=== PATIENT | female | born 1935 | race Caucasian/White ===

== ENCOUNTER 2018-10-09 14:18 | Emergency (ER) | payer OTHER ==
[~2018-10-09] VITALS: Ht 152.4 cm; Wt 84.2 kg
--- NOTE | ~2018-10-09 | EKG ---
[place] [address] [facility] [address] [place] [address] ELECTROCARDIOGRAM REPORT Name: STEPHANY MOORE Room #: 170-10 ADM IN M.R.#: [id number] Admission: 10/09/18 Attend Phys: Bubba Blankenship MD, Discharge: Date of : 37 Report #: [id number] THIS REPORT FOR: //name// [facility] ED Test Date: 2018-10-09 Test Time: 14:35:00 Pat Name: STEPHANY MOORE Department: Room: 170 Gender: F Director Report: UBALDO : 1935 Requested By: Jimmy Zamora Order Number: [id number] MD: Jorge De Paz Measurements Intervals [place] Rate: 124 P: 131 RI: 73 QRS: -36 QRSD: 136 T: 158 QT: 341 QTc: 490 Interpretive Statements Sinus tachycardia Left bundle branch block Compared to ECG 12/20/2012 11:58:14 Left bundle-branch block now present Electronically Signed On 10-09-2018 16:40:52 FIXING CARPENTER by Jorge De Paz [email or web address] <ELECTRONICALLY SIGNED> By: Jorge De Paz MD, [facility] 10/09/18 [facility] 143 1435 Jroge De Paz MD, [facility] /EPI
--- NOTE | ~2018-10-09 | CATHLAB ---
[facility] [address] [place] [address] INVASIVE PROCEDURE REPORT Name: TERESASTEPHANY Room #: MARILYN Ruiz#: [id number] Admission: 10/09/18 Attend Phys: Discharge: 10/09/18 Date of : 37 Date of Service: 10/15/18 0954 Report #: [id number] THIS REPORT FOR: //name// APPROVED REPORT Study performed: 10/09/2018 15:48:31 Patient Details Patient Status: In-Patient Room #: The patient is a 82 year-old female Event Personnel Bubba Blankenship Retail Warehouse Supervisor, Sera Olvera RN RN, Edilberto Orozco RN RN, Rosa Gutierrez, Leydi Romero Monitor Procedures Performed Art Access - R femoral artery* Ruy Access - R femoral vein Ruy Access - L femoral vein 37437 Initial Mod Sed Same Phys/QHP Gr5y 465646 07084 Mod Sed Same Phys/QHP Ea 384344 Coronaries Angiography w/Rt Heart Cath 8770197 RHCWCOR Supravalvular Aortography Injection 0978637 ISVA Aortogram Abdominal Peripheral Angio 949187 EH Place w/wo Plasty Single Left Main 401332 PTCA Single Vessel RCA 9595108 PCISINGLE Cardio-Pulmonary Resuscitation 2495253 CPR Indication STEMI Procedure Narrative The patient was brought emergently to the Cardiac Catheterization Laboratory and was prepped and draped in a sterile manner. The Right Groin^ was infiltrated with 1% Lidocaine subcutaneous anesthesia. A Right Heart Catheterization was performed with a 7 Fr. Enola-Guillermina catheter and pressure were recorded. A PINNACLE 6FR Sheath #[id number] sheath was inserted into the RFA^. Coronary angiography was performed using coronary diagnostic catheters. The right coronary system was accessed and visualized with a JR 4 catheter. The left coronary system was accessed and visualized with a JL 4 catheter. Intraoperative Conscious Sedation Sedation start time: 16:34 Case end Time: 19:01 Fentanyl 25 mcg Versed 0.[address] [address] INVASIVE PROCEDURE REPORT Name: [facility] Room #: [facility] Joseph#: [id number] Admission: 10/09/18 Attend Phys: Discharge: 10/09/18 Date of : 37 Date of Service: 10/15/18 0954 Report #: [id number] Fluoro Time: 33.20 minutes Dose: DAP 79129.00 cGycm2 4418 mGy Contrast Type and Amount: Omnipaque 250 ml IVUS Intravascular Ultrasound was performed on the mid right coronary artery vessel. A Guide Catheter was used to engage the Luge Wire .014 x 182CM #[id number] ostium. A LAUNCHER 6FR JR 4 #[id number] was used. IVUS Findings Sprinter OTW 1.5 x 12 #997120 Hemodynamics The pulmonary artery pressure is 37/9 mmHg with a mean of 23 mmHg. The mean pulmonary capillary wedge pressure is 12 mmHg. The aortic pressure is 113/85 mmHg with a mean of 97 mmHg. PCI Technique Lesion Percutaneous coronary intervention was performed on the mid right coronary artery. A Luge Wire .014 x 182CM #916475 Guide Catheter was used to engage the ostium. A LAUNCHER 6FR JR 4 #[id number] Interventional Guidewire was used to cross the lesion. BALLOON DILATION A Balloon catheter Sprinter OTW 2.25 x 20 #[id number] was inserted and inflated up to 3.00atm for 19seconds. POST STENT DEPLOYMENT BALLOON DILATION A Balloon catheter Sprinter OTW 2.0 x 12 #[id number] was inserted and inflated up to 12.00atm for 32seconds. Additional Inflation: 6.00atm for 28seconds. PCI Technique Lesion Percutaneous coronary intervention was performed on the mid right coronary artery. A Luge Wire .014 x 182CM #712755 Guide Catheter was used to engage the ostium. A LAUNCHER 6FR JR 4 #[id number] Interventional Guidewire was used to cross the lesion. BALLOON DILATION A Balloon catheter Sprinter OTW 1.5 x 12 #[id number] was inserted and inflated up to 16.00atm for 22seconds. Additional Inflation: 16.00atm for 30seconds. POST STENT DEPLOYMENT BALLOON DILATION A Balloon catheter Sprinter OTW 2.25 x 15 #[id number] was inserted and [facility] [address] [place] [address] INVASIVE PROCEDURE REPORT Name: [facility] Room #: MARILYN Ruiz#: [id number] Admission: 10/09/18 Attend Phys: Discharge: 10/09/18 Date of : 37 Date of Service: 10/15/18 0954 Report #: [id number] inflated up to 10.00atm for 21seconds. Additional Inflation: 14.00atm for 20seconds. Additional Inflation: 18.00atm for 20seconds. PCI Technique Lesion 2 Percutaneous Coronary Intervention was performed on the LM. A Luge Wire .014 x 182CM #486251 Guide Catheter was used to engage the ostium. A LAUNCHER 6FR JL4.5 #023903 Interventional Guidewire was used to cross the lesion. Balloon Dilation A Balloon catheter Sprinter OTW 2.5 x 10 #[id number] was inserted and inflated up to 14.00atm for 15seconds. Stent Deployment A drug-eluting stent RESOLUTE PADMINI OTW 2.5 X 8 #[id number] was inserted and inflated up to 14.00atm for 17seconds. Additional Inflation: 18.00atm for 15seconds. Post Stent Deployment Balloon Dilation A Balloon catheter TREK NC OTW 3.0 X 12 #[id number] was inserted and inflated up to 18.00atm for 10seconds. Conclusion #1 successful PTCA stent of a subtotal ostial left main placement of a 2.5 x 8 Padmini postdilated 2.8 mm. Religion of flow into the left system was noted. #2 successful PTCA of the distal third of the dominant right coronary artery that was subtotaled. Technically difficult challenging less than 30% residual with muslim of some flow into the PDA. This was attempted initially to try to give some back up to the left main intervention. As a left system was collaterally filling the PDA. This went relatively successful in that hemodynamics had been mildly compromised with systolic pressures 80-90 from the initiation of this case on initiation of pressor support. However this did not worsen her significantly changed for this intervention prior to the left main intervention. #3 moderately severe disease involving the LAD which extended to the apex and filled the PDA and the diagonal circumflex system in addition. On no high-grade lesions noted #4 aortic root was performed mild lead dilated. I cannot cross that aortic valve nor did the situation allow time due to hypotension and tachycardia. There may have been a degree of aortic stenosis. This case was done emergently from the ER Narrative: Extremely difficult challenging case. Patient hypotensive tachycardic at initiation. Pressor support was initiated as well as [facility] [address] [place] [address] INVASIVE PROCEDURE REPORT Name: [facility] Room #: [facility] Ruiz#: [id number] Admission: 10/09/18 Attend Phys: Discharge: 10/09/18 Date of : 37 Date of Service: 10/15/18 0954 Report #: [id number] respiratory support. Attempted to intervene and did intervene into the right coronary artery initially without any change in hemodynamics to try to provide some flow to the PDA as the entire system was being filled off of a subtotal ostial left main. Moderate disease noted in the left system as above. Continue pressor support and emergent intubation from emergency room physician. CPR ensued on multiple occurrences with ACLS protocol multiple rounds of epinephrine and atropine and bicarbonate 5 A calcium. Pulmonary was also in assistance. I did have return of rhythm and pressure. However could not hold her pressure and had multiple occurrences of PE A. This entire CODE BLUE last approximately 45 minutes. That was after initiation of the code after the intervention. The left main intervention went well but extremely difficult due to guide support. Final result was a widely patent left main with flow however could not continue suppressor support. Certainly may be a component of aortic valve stenosis that was complicating this however there is no way to know there is was no imaging performed the right coronary was patent and improved proved flow after the dilatation of the distal third segment of that right coronary with some filling of the PDA. Extreme tortuosity of the iliac system were precluded any sort of balloon pump support. Nor was there really any time to initiate due to the relative tachycardia and hypotension. Emergent surgery obviously not an option here. There was no family she is estranged from her children who [place] [facility] she stated prior and lives with a friend who I did discuss. And then I believe corners were notified up agreed to sign the certificate. I didn't appreciate the support of the staff for CPR purposes pulmonary and emergency room physicians. I did terminate the CODE BLUE. <ELECTRONICALLY SIGNED> By: Bubba Blankenship MD, [facility] 10/15/1854 3 3 Bubba Blankenship MD, FAC /INF
--- NOTE | ~2018-10-09 | D ---
[facility] [place] [address] [place] [address] DISCHARGE SUMMARY Name: STEPHANY MOORE Room #: 170-10 ADM IN M.R.#: [id number] Admission: 10/09/18 Attend Phys: Bubba Blankenship MD, Discharge: Date of : 37 Report #: [id number] THIS REPORT FOR: //name// CC: Bubba Hernandez DATE OF SERVICE: 10/09/2018 HISTORY OF PRESENT ILLNESS: The patient is an 82-year-old female I am asked to see emergently for progressive shortness of breath, chest pain and a troponin of 13. Significant abnormalities in her EKG with an incomplete left bundle and sinus tachycardia. Some marginal oxygenation. She has not seen physicians much in the past. She used to see Dr. Germain Hernandez. Recently saw somebody since a.m., but does not remember the name. She has been on esmolol, warfarin, lisinopril 5, amiodarone, magnesium, carvedilol, atorvastatin 40 and levothyroxine 0.1. Did not have any results of an INR back. Past medical history does not involve any cardiac history that she is aware. She has hypertension, hypercholesterolemia and she started treating those a few years ago. Laboratory work, pO2 was 70, pH was 7.4. H and H was 11 and 34. INR was 1.1 and she states she had not been taking her warfarin. Creatinine was 0.9. Troponin was 13.1. BNP was 10,000. PAST MEDICAL HISTORY: Obtained from the records in the Emergency Room was hypertension, hypercholesterolemia, obesity, reflux, depression, DJD, appendectomy and cholecystectomy. It appears she must have had some history of atrial fibrillation with the amiodarone and warfarin by history. SOCIAL HISTORY: She states she is not currently a drinker or smoker, but previously has been both. She is and/or . She is estranged from her [place] She lives with a friend. No current alcohol or tobacco. FAMILY HISTORY: She denies, but really states she cannot remember if there is any premature coronary artery disease. ALLERGIES: HIT, BY HISTORY. PHYSICAL EXAMINATION: VITAL SIGNS: She has mild dyspnea, mild chest discomfort, minimal discomfort. She is tachycardic with rate in the 120s. Initially blood pressure was 130s-140s systolic. HEENT: Eyes reveal xanthelasmas. There is an arcus. Pharynx is clear. NECK: Shows preserved upstrokes, question of some mild JVD. LUNGS: Coarse sounds, diminished in the bases. Crackles on the sides bilaterally. CARDIAC: Distant heart tones, tachycardic S1, S2, some irregularity. It seems [facility] [address] [place] [address] DISCHARGE SUMMARY Name: STEPHANY MOORE Room #: 170-10 [facility] IN M.R.#: [id number] Admission: 10/09/18 Attend Phys: Bubba Blankenship MD, Discharge: Date of : 37 Report #: [id number] to be sinus on the EKG. There was a systolic murmur at upper sternal border. ABDOMEN: Slightly distended, nontender. EXTREMITIES: Reveal trace of edema. Distal pulses, I cannot palpate. NEUROLOGIC: Nonfocal. SKIN: Warm and dry without xanthoma. No significant ulcers. MUSCULOSKELETAL: Generalized arthritic changes. She did not ambulate. ASSESSMENT: 1. Stuttering ST-elevation myocardial infarction versus non-ST elevation myocardial infarction with new left bundle branch block. 2. Hypertension. 3. Sinus tachycardia with relative hypoxemia. 4. Acute systolic failure, I suspect. 5. Hypertension. 6. Hypercholesterolemia. 7. Degenerative joint disease. 8. Obesity. RECOMMENDATIONS AND PLAN: We will proceed emergently to the catheterization lab. HOSPITAL COURSE: The patient was taken to the catheterization lab. I could not cross the aortic valve, so not known whether she had significant stenosis there, always a possibility. The right coronary artery was subtotally occluded and the left main had a high grade ostial lesion. Not really deemed to be a surgical candidate based on her current distress and the troponin. I proceeded and was able to at least dilate the RCA, I think and this could give some backup if I can get the left main as this was also supplying the inferior wall. There is no way to assess her LV function at this late hour of the day, late afternoon with no echo available. I was able to dilate with systolic pressure in the 100 range. Some atrial fibrillation was noted. I then proceeded with intervention to the left main. This was a balloon and a stent placement of a 2.5 and then a very quick dilatation with a 3.0 balloon. This was actually an excellent result and was able to restore flow. Had some hypotension transiently, which did resolve and placed Troy-Guillermina catheter, which showed not significantly elevated pulmonary pressures. Subsequently, had significant hypotension and some frothy bloody sputum. Respiratory therapy had been in place and had been here and treating and then subsequently called a code because of the hypotension and bradydysrhythmia. Did perform code blue for approximately 40 minutes. You can see the runner for the medications, which included significant bicarbonate for acidosis as the blood gas was checked, calcium, epinephrine, atropine. The patient was intubated by Emergency Room physician. Then had episcopal of pressure and some rhythm; however, could not hold this despite the pressors of Levophed and dopamine. Was going to initiate vasopressin. At this point, further code blue seemed futile. She had an agonal breath and no blood pressure. No significant electrical activity. There was some PEA noted. I [facility] [address] [place] [address] DISCHARGE SUMMARY Name: [facility] Room #: 170-10 ADM IN M.R.#: [id number] Admission: 10/09/18 Attend Phys: Bubba Blankenship MD, Discharge: Date of : 37 Report #: [id number] decided to call this at 1638 hours. We will notify the corner. She had essentially no coronary perfusion left with a total of the right and the subtotal of the left main. DIAGNOSES: 1. Severe coronary artery disease with an angioplasty stent of the left main and a percutaneous transluminal coronary angiography of the right coronary artery, unable to restore hemodynamic stability. 2. Suspected severe ischemic cardiomyopathy. 3. Longstanding hypertension. 4. Hypercholesterolemia. 5. Degenerative joint disease. 6. Obesity. We will notify the significant other who she lives with. She did not want me to have any discussion with the children that live on the [facility]; however, they will obviously need to be notified. <ELECTRONICALLY SIGNED> By: Bubba Blankenship MD, [facility] 10/11/18 0946 [id number] Bubba Blankenship MD, FACC /nt
[~2018-10-09 14:18] MED LIST: ALDACTONE25 MG PO; BUMETANIDE0.25 MG/1 PO; COREG3.125 MG PO; COUMADIN 5 MG TA5 M1 PO; LASIX 40 MG TAB40 M1 PO; LEVOTHYROXINE 0.1 MG PO; LEVOTHYROXINE0.05 MG PO; LEVOTHYROXINE0.2 M1 PO; LIPITOR40 MG PO; MAGOX 400400 MG PO; METOPROLOL SUCC25 M1 PO; MOBIC7.5 MG PO; NEURONTIN 300300 M1 PO; NEXIUM40 MG PO; PACERONE 200 M200 M1 PO; POTASSIUM20 PO; PRINIVIL5 MG PO; SIMVASTATIN20 MG PO
[2018-10-09 14:19] VITALS: BP 116/88
[2018-10-09 14:38] LABS: ABSOLUTE NEUTROPHILS 5.5 thou/uL (1.4-8.2); BASOPHILS 1.1 % (0.0-2.0); EOSINOPHILS 0.4 % (0.0-3.0); HEMATOCRIT 34.2 % (37.0-47.0); HEMOGLOBIN 11.6 gm/dL (12.0-15.0); LYMPHOCYTES 16.8 % (24.0-44.0); MCH 29.5 pg (26.0-34.0); MCV 86.8 fL (80.0-100.0); MONOCYTES 10.3 % (1.0-8.0); PLATELET COUNT 207 thou/uL (150-400); POLYS 71.4 % (36.0-66.0); RBC 3.94 mil/uL (4.20-5.00); RDW 16.3 % (10.5-14.5); WBC 7.8 thou/uL (4.0-11.0)
[2018-10-09 14:47] LABS: CALCIUM 9.2 mg/dL (8.5-10.1); CREATININE 0.9 mg/dL (0.6-1.0); POTASSIUM 4.5 mmol/L (3.5-5.1)
[2018-10-09 14:52] LABS: BE(vivo) -5.6 mmol/L (-2 to +3); HCO3 15.9 mmol/L (22.0-26.0); PCO2 21.7 mmHg (35.0-45.0); PO2 70.4 mmHg (80.0-100.0); pH 7.483 (7.360-7.450); sO2 95.6 % (92.0-98.0)
[2018-10-09 14:53] LABS: INR 1.1; PROTIME 11.8 Seconds (9.3-11.4)
[2018-10-09 14:56] LABS: ALBUMIN 3.2 g/dL (3.4-5.0); TOTAL BILIRUBIN 1.2 mg/dL (<0.1-1.0); TOTAL PROTEIN 7.3 g/dL (6.4-8.2)
[2018-10-09 15:01] LABS: TROPONIN-I 13.14 ng/mL (<0.06)
[2018-10-09 15:54] VITALS: BP 110/79
[2018-10-09 18:19] LABS: BE(vivo) -18.6 mmol/L (-2 to +3); HCO3 12.3 mmol/L (22.0-26.0); PCO2 50.5 mmHg (35.0-45.0); PO2 68.8 mmHg (80.0-100.0); sO2 82.9 % (92.0-98.0)
[2018-10-09 18:20] LABS: pH 7.004 (7.360-7.450)
== END 2018-10-09 16:40 | disposition still patient (30) ==
LOC: ER 14:18 → EROBS 15:45 → ER 15:45
PROVIDERS: Internal Medicine Cardiovascular Disease; Physician Assistant
DX: I21.4 Non-ST elevation (NSTEMI) myocardial infarction (principal); I11.0 Hypertensive heart disease with heart failure; I50.21 Acute systolic (congestive) heart failure; E78.5 Hyperlipidemia, unspecified; K21.9 Gastro-esophageal reflux disease without esophagitis; F32.9 Major depressive disorder, single episode, unspecified; E78.00 Pure hypercholesterolemia, unspecified; M06.9 Rheumatoid arthritis, unspecified; E03.9 Hypothyroidism, unspecified; Z87.891 Personal history of nicotine dependence; Z86.718 Personal history of other venous thrombosis and embolism; Z88.8 Allergy status to other drugs, medicaments and biological substances; Z90.49 Acquired absence of other specified parts of digestive tract